=== PATIENT | female | born 1980 ===

== ENCOUNTER 2017-12-26 23:50 | Emergency (ER) | payer OTHER ==
[2017-12-26 23:57] VITALS: BP 110/79; PULSE 93; RESP 17; TEMP 98.1; O2SAT 100
[2017-12-27] MEDS ORDERED: Lidocaine 1% Inj (20ml) IJ ONE (01:13)
--- NOTE | 2017-12-27 01:21 | CP.PCM.CON ---
History of Present Illness - History of Present Illness History of Present Illness: Podiatry Consult Note for Dr. Mcclellan: 37 yo female patient, with no significant PMHx, seen and evaluated for right hallux pain. Patient states that she was chasing her son yesterday when he tripped over her right big toe causing the nail bed to lift up. She states she is in mild pain to the nail bed and surrounding borders; pain is localized and controlled. She has not taken any medication for the pain. Patient denies any N /V/F/SOB/CP. PMHx: Denies ALL: Denies Review of Systems - Review of Systems Review of Systems: As per HPI Past Patient History - Past Social History Smoking Status: Never Smoked - PSYCHIATRIC Hx Substance Use: No - ANESTHESIA Hx Anesthesia: No Meds Home Medications: Home Medication List Medication Instructions Recorded Confirmed Type Acetaminophen [Acetaminophen 8 650 mg PO Q8 PRN #21 tablet.er 12/27/17 Rx Hour] Allergies/Adverse Reactions: Allergies Allergy/AdvReac Type Severity Reaction Status Date / Time No Known Allergies Allergy Verified 12/26/17 23:54 Physical Exam - Constitutional Appears: Well, Non-toxic, No Acute Distress - Head Exam Head Exam: ATRAUMATIC, NORMOCEPHALIC - Extremities Exam Additional comments: RLE focused exam: Vascular: DP/PT 2/4 bilaterally, CFT <3 seconds to all digits, TG WNL, no edema noted to right lower extremity Ortho: Tenderness to palpation of nail bed and medial and lateral borders. MMT 5 /5 upon inversion, eversion, plantarflexion, dorsiflexion. No tenderness upon calf compression Neuro: Gross and protective sensation intact Derm: Dystrophic and elongated right hallux nail. Onycholysis of right hallux nail, crusted serous drainage noted to medial and lateral nail borders, no purulence, no open lesions, no clinical signs of infection - Neurological Exam Neurological exam: Alert, Oriented x3 - Psychiatric Exam Psychiatric exam: Normal Affect, Normal Mood Results - Vital Signs Recent Vital Signs: Last Vital Signs Temp 98.1 F 12/26/17 23:54 Pulse 93 H 12/26/17 23:54 Resp 17 12/26/17 23:54 BP 110/79 12/26/17 23:54 Pulse Ox 100 12/26/17 23:54 Assessment & Plan - Assessment and Plan (Free Text) Assessment: 37 yo female patient, with no significant PMHx, seen and evaluated for right hallux onycholysis. Plan: Patient seen and evaluated with all questions and concerns addressed Discussed patient in detail with Dr. Mcclellan Right hallux block performed with 10cc 2% Lidocaine plain Right total nail avulsion performed in an aseptic manner and dressed with betadine, xeroform, and DSD Patient instructed to keep dressing C/D/I Dispensed surgical shoe Patient to f/u in Dr. Mcclellan's office Thank you for the consult - Date & Time Date: 12/27/17 Time: 01:00
[2017-12-27] MEDS ORDERED: Lidocaine 1% 5ml Abboject ONE (01:32)
[2017-12-27] MEDS ORDERED: Lidocaine PF 2% (5 ml) Inj (For Cardiac Arrhy) ONE ×2 (01:34→01:37)
[2017-12-27] MEDS ORDERED: Povidone Iodine Oint 10% Foilpak UD ONE (01:48)
--- NOTE | 2017-12-27 01:57 | ED PDOC ---
Lower Extremity Pain/Injury Time Seen by Provider: 12/27/17 00:26 Chief Complaint (Nursing): Lower Extremity Problem/Injury Chief Complaint (Provider): Toe Injury History Per: Patient History/Exam Limitations: no limitations Onset/Duration Of Symptoms: Hrs (today) Current Symptoms Are (Timing): Still Present Additional Complaint(s): Bethany Hernandez is a 37 year old female, with no significant past medical history, who presents to the emergency department for evaluation of pain and swelling to right big toe associated with toenail injury just prior to arrival. Patient states she was chasing her son when he fell backwards onto her toe causing her toenail to lift up. She took no medications prior to arrival. She reports pain is localized and denies any other injuries. LMP 15 days ago PMD: [facility] Past Medical History Reviewed: Historical Data, Nursing Documentation, Vital Signs Vital Signs: Last Vital Signs Temp 98.1 F 12/26/17 23:54 Pulse 93 H 12/26/17 23:54 Resp 17 12/26/17 23:54 BP 110/79 12/26/17 23:54 Pulse Ox 100 12/26/17 23:54 - Medical History PMH: No Chronic Diseases - Surgical History Surgical History: No Surg Hx - Family History Family History: States: Unknown Family Hx - Social History Current smoker - smoking cessation education provided: No Alcohol: None Drugs: Denies - Home Medications Home Medications: Ambulatory Orders Medication Instructions Recorded Acetaminophen [Acetaminophen 8 650 mg PO Q8 PRN #21 tablet.er 12/27/17 Hour] - Allergies Allergies/Adverse Reactions: Allergies Allergy/AdvReac Type Severity Reaction Status Date / Time No Known Allergies Allergy Verified 12/26/17 23:54 Review of Systems ROS Statement: Except As Marked, All Systems Reviewed And Found Negative Musculoskeletal: Positive for: Foot Pain (big toe injury) Physical Exam - Reviewed Nursing Documentation Reviewed: Yes Vital Signs Reviewed: Yes - Physical Exam Comments: GENERAL APPEARANCE: Patient is awake, alert, oriented x 3, in no acute distress. Resting comfortably SKIN: Warm, dry; (-) cyanosis. CHEST AND RESPIRATORY: (-) rhonchi, (-) rales, (-) wheezes; breath sounds equal bilaterally. HEART AND CARDIOVASCULAR: (-) irregularity LOWER EXTREMITY: RIGHT FOOT: Diffuse tenderness to distal phalanx of the right first toe. Avulsion of the toenail of the right first toe just proximal portion of the nail remains attached, no active bleeding, no effusion. Sensation intact (+) Normal range of motion. Achilles tendon intact and nontender. Knee and foot : (-) injury and nontender. (-) calf tenderness CARDIOVASCULAR: (+) distal pulses - ECG O2 Sat by Pulse Oximetry: 100 (RA) Pulse Ox Interpretation: Normal Medical Decision Making Medical Decision Making: Time: 00:26 Initial Impression: Right first toe injury, toenail avulsion Initial Plan: --Lidocaine 1% 5 ml IJ --Tylenol 325 mg tab 650 mg PO --Reevaluation --Podiatry consult 0130 Podiatry at bedside. See consult note. 0155 Per podiatry, patient can be discharged and follow up with Dr Mcclellan in office. On re-evaluation, patient reports improvement of symptoms. On exam, patient remains AAOx3, in no acute distress. Lungs clear to auscultation, cardiac RRR, repeat neuro exam shows no focal findings. VSS, stable for discharge. Lab/Diagnostic results d/w the patient in great detail. Diagnosis of toe injury , nail avulsion d/w the patient. Based on history, exam and diagnostic results, plan will be for outpatient follow up. Patient instructed to follow-up with pmd / referral provided / the clinic in 1- 2 days without fail. Advised to take medication as prescribed. Return to the emergency room at any time for any new or worsening symptoms. Patient states she fully agrees with and understands discharge instructions. States that she agrees with the plan and disposition. Verbalized and repeated discharge instructions and plan. I have given the patient opportunity to ask any additional questions. ----- Scribe Attestation: Documented by Praneeth De Jesus, acting as a scribe for Blessing Melendez PA-C. Provider Scribe Attestation: All medical record entries made by the Scribe were at my direction and personally dictated by me. I have reviewed the chart and agree that the record accurately reflects my personal performance of the history, physical exam, medical decision making, and the department course for this patient. I have also personally directed, reviewed, and agree with the discharge instructions and disposition. Disposition - Clinical Impression Clinical Impression: Avulsion of toenail, Toe injury - Patient ED Disposition Is Patient to be Admitted: No Counseled Patient/Family Regarding: Studies Performed, Diagnosis, Need For Followup, Rx Given - Disposition Referrals: Peter Khalil MD [Primary Care Provider] - Armond Mcclellan MD [Staff Provider] - Disposition: Routine/Home Disposition Time: 01:54 Condition: STABLE Additional Instructions: The emergency medical care you received today was directed towards the acute presenting symptoms. If you were prescribed any medication, please fill it and give as directed. It may take several days for your symptoms to resolve. Return to the Emergency Department at any time if symptoms worsen, do not improve, or if any other problems arise. Please contact your doctor in 2 days for re-evaluation and follow up / or call one of the physicians/clinics you have been referred to that are listed on the Patient Visit Information form that is included in your discharge packet. Bring any paperwork you were given at discharge with you along with any medications to your follow up visit. Our treatment cannot replace ongoing medical care by a primary care provider (PCP) outside of the emergency department. Prescriptions: Acetaminophen [Acetaminophen 8 Hour] 650 mg PO Q8 PRN #21 tablet.er PRN Reason: Pain, Moderate (4-7) Instructions: Toe Injury, Nail Avulsion Forms: [employer] (Slovak) Print Language: PORTUGUESE - POA Present On Arrival: Falls Or Trauma
== END 2017-12-27 02:15 | disposition home or self-care (01) ==
LOC: H.ER 23:50
DX: S91.201A Unspecified open wound of right great toe with damage to nail, initial encounter (principal); W22.8XXA Striking against or struck by other objects, initial encounter; Y92.89 Other specified places as the place of occurrence of the external cause